=== PATIENT | female | born 1995 | race Caucasian/White ===

== ENCOUNTER 2021-07-02 13:20 | Outpatient (CLI) | payer OTHER ==
[~2021-07-02] VITALS: Ht 175 cm; Wt 83.5 kg
[2021-07-02 13:47] VITALS: BP 112/66
[2021-07-02 13:54] VITALS: BP 112/66
[2021-07-02 14:30] LABS: BILIRUBIN,URINE NEGATIVE (NEGATIVE); CLARITY,URINE SL CLOUDY; COLOR,URINE YELLOW; GLUCOSE, URINE (UA) NEGATIVE (NEGATIVE); KETONES,URINE TRACE (NEGATIVE); LEUKOCYTE ESTERASE ,URINE TRACE (NEGATIVE); NITRITE,URINE NEGATIVE (NEGATIVE); PROTEIN,URINE NEGATIVE (NEGATIVE)
[2021-07-02 14:49] LABS: BACTERIA,URINE MODERATE /HPF; RBC,URINE RARE /HPF
[2021-07-02] MEDS ORDERED: DOXY25TA56 PO (14:49)
[2021-07-02] MEDS ORDERED: ASCO100T6 PO (14:49)
[2021-07-02] MEDS ORDERED: ACYC400T21 PO (14:49)
[2021-07-02] MEDS ORDERED: FERR159T2 PO (14:49)
[2021-07-02] MEDS ORDERED: CETI10CA PO (14:49)
[2021-07-02] MEDS ORDERED: FOLI0.4T6 PO (14:49)
[2021-07-02] MEDS ORDERED: PREN-48 PO (14:49)
[2021-07-02] MEDS ORDERED: VIT1CAPS PO (14:49)
[2021-07-02 16:39] VITALS: BP 102/64
== END 2021-07-02 18:18 | disposition home or self-care (01) ==
LOC: WSo 13:20 → LDRP 13:21 → WSo 18:18
PROVIDERS: ATTEND Obstetrics & Gynecology
DX: Z34.90 Encounter for supervision of normal pregnancy, unspecified, unspecified trimester (principal); Z3A.00 Weeks of gestation of pregnancy not specified
CPT/HCPCS: 81000; 87088

== ENCOUNTER 2021-07-06 19:00 | Inpatient (IN) | payer OTHER ==
[~2021-07-06] VITALS: Ht 170.2 cm; Wt 85.8 kg
[~2021-07-06 19:00] MED LIST: ACYC400T21 PO; ASCO100T6 PO; CETI10CA PO; DOXY25TA56 PO; FERR159T2 PO; FOLI0.4T6 PO; PREN-48 PO; VIT1CAPS PO
--- OUTSIDE RECORDS SUMMARY | 2021-07-06 19:20 | XMS REPORT | Clinical Summary ---
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 If you d o not see the information that you expected, contact Release of Information in [facility] [employer] Information Management department at [phone] for further assistan ce in locating additional records.[facility] Allergies Not on File Medications Not on file Active Problems Not on file Social History Date Tobacco Use Types Packs/Day Years Used Never Assessed Sex Assigned at Date Recorded Not on file Last Filed Vital Signs Not on file Plan of Treatment Health Maintenance Due Date Last Done Comments COVID-19 VACCINE (1) 1999 HIV SCREENING 2009 DTAP/TDAP VACCINES (1 - 2012 Tdap) HEPATITIS C SCREENING 2012 PHYSICAL (COMPREHENSIVE) 2012 EXAM CERVICAL CANCER SCREENING 2015 INFLUENZA VACCINE 12/13/2020 HPV VACCINES Aged Out No longer eligible based on patient's age to complete this topic Results Not on filefrom Last 3 Months Insurance Type Payer Benefit Subscriber ID Effective Phone Address Plan / Dates Group PPO [employer] TR[employer] [id number] 2018-P [phone] [employer] NO NETWORK resent [employer] (OON) BUSINESS BENEFITS 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
[2021-07-06 19:30] VITALS: BP 107/65
[2021-07-06] MEDS ORDERED: D5 LR IV SOLUTION 1,000 ML IV ONE (19:36)
[2021-07-06] MEDS ORDERED: NS IV 1000 ML 1,000 ML ONE (19:37)
[2021-07-06] MEDS ORDERED: CATHETER FLUSH 10 ML SYR IV PRN (19:45)
[2021-07-06] MEDS ORDERED: NS IV 1000 ML 1,000 ML IV SCH (19:45)
[2021-07-06] MEDS ORDERED: TERBUTALINE INJ 1 MG/ML (BRETHINE) AMP SC PRN (19:45)
[2021-07-06] MEDS ORDERED: MINERAL OIL 30 ML OIL TOP PRN (19:45)
[2021-07-06 20:11] LABS: BASOPHILS % (AUTO) 0 % (0-10); EOSINOPHILS # (AUTO) 0.1 10^3/uL (0.0-0.3); EOSINOPHILS % (AUTO) 1 % (0-10); HEMATOCRIT 38 % (35-52); LYMPHOCYTES # (AUTO) 1.9 10^3/uL (1.0-4.0); LYMPHOCYTES % (AUTO) 18 % (12-44); MEAN CORPUSCULAR HEMOGLOBIN 30 pg (25-34); MEAN CORPUSCULAR HGB CONC 34 g/dL (32-36); MEAN CORPUSCULAR VOLUME 87 fL (80-99); MEAN PLATELET VOLUME 9.8 fL (9.0-12.2); MONOCYTES # (AUTO) 0.8 10^3/uL (0.0-1.0); MONOCYTES % (AUTO) 7 % (0-12); NEUTROPHILS # (AUTO) 7.8 10^3/uL (1.8-7.8); NEUTROPHILS % (AUTO) 73 % (42-75); PLATELET COUNT 154 10^3/uL (130-400); WHITE BLOOD COUNT 10.7 10^3/uL (4.3-11.0)
[2021-07-06 20:12] LABS: BILIRUBIN,URINE NEGATIVE (NEGATIVE); CLARITY,URINE CLEAR; COLOR,URINE YELLOW; GLUCOSE, URINE (UA) NEGATIVE (NEGATIVE); KETONES,URINE NEGATIVE (NEGATIVE); LEUKOCYTE ESTERASE ,URINE NEGATIVE (NEGATIVE); NITRITE,URINE NEGATIVE (NEGATIVE); PH,URINE 6.5 (5-9); PROTEIN,URINE NEGATIVE (NEGATIVE)
[2021-07-06 20:20] VITALS: BP 107/65
--- NOTE | 2021-07-06 20:27 | History & Physical-OB ---
OB - Chief Complaint & HPI Date/Time Date of Admission: Date of Admission: Jul 06, 2021 at 19:17 Date seen by a Provider: Jul 06, 2021 Time Seen by a Provider: 20:30 Chief Complaint/History OB-Reason for Admission/Chief: Induction of Labor Hx : 2 Hx Para: 0010 Expected Date of Delivery: Jul 06, 2021 Gestational Age in Weeks: 40 Gestational Age in Days: 0 Indication for induction: post dates History of Labs A pos GBS neg RPR NR HIV NR RI HBsAg NR G/C not detected Allergies and Home Medications Allergies Coded Allergies: No Known Drug Allergies (Unverified , 07/02/21) Patient Home Medication List Home Medication List Reviewed: Yes Acyclovir (Acyclovir) 400 Mg Tablet, 400 MG PO Q8H, (Reported) Entered as Reported by: ROSLYN DINH on 07/02/211448 Last Action: Reviewed Ascorbic Acid (Vitamin C) 100 Mg Tablet, 100 MG PO DAILY, (Reported) Entered as Reported by: ROSLYN DINH on 07/02/211448 Last Action: Reviewed Cetirizine HCl (Zyrtec) 10 Mg Capsule, 10 MG PO DAILY, (Reported) Entered as Reported by: ROSLYN DINH on 07/02/211448 Last Action: Reviewed Doxylamine Succinate (Unisom) 25 Mg Tablet, 25 MG PO, (Reported) Entered as Reported by: ROSLYN DINH on 07/02/211448 Last Action: Reviewed Ferrous Sulfate, Dried (Iron) 159 Mg Tablet.er, 159 MG PO, (Reported) Entered as Reported by: ROSLYN DINH on 07/02/211448 Last Action: Reviewed Folic Acid (Folic Acid) 0.4 Mg Tablet, 0.4 MG PO DAILY, (Reported) Entered as Reported by: ROSLYN DINH on 07/02/211448 Last Action: Reviewed Vit No.78/Iron/FA (Prenatabs FA Tablet) 1 Each Tablet, 1 EACH PO, (Reported) Entered as Reported by: ROSLYN DINH on 07/02/211448 Last Action: Reviewed Vit B6/L. Mefolate/Me-B12/Ala (Nufola Capsule) 1 Each Capsule, 1 EACH PO, (Reported) Entered as Reported by: ROSLYN DINH on 07/02/21 1449 Last Action: Reviewed OB - History Hx of Present Care: Yes Ultrasounds: Normal mid trimester US Obstetrical Complications: None Medical Complications: None Information Induced Hypertension: No Maternal Gestational Diabetes: No Hemorrhage: No Obstetrical History Hx : 2 Hx Para: 0010 Hx # Term Pregnancies: 0 Hx # Pregnancies: 0 Number of Living Children: 0 Hx Total # of Abortions (Spona: 1 Patient Past Medical History None Social History/Family History 2nd Hand Smoke Exposure: No Immunizations Influenza Vaccine Up-to-Date: Yes; Up-to-Date Tetanus Booster (TDap): Less than 5yrs (05/13/2021) Rubella: immune RPR/VDRL: Negative GBS Status: Negative HBsAG: Negative OB - Admission Exam Physical Exam Vitals: Vital Signs 07/06/21 07/06/21 19:30 20:20 Temp 36.6 Pulse 80 Resp 18 B/P (MAP) 107/65 (79) Pulse Ox 97 O2 Delivery Room Air Heart: Rhythm Normal Lungs: Clear Abdomen: Gravid Extremities: Normal Cervical Dilatation: 1cm Effacement: Other (70%) Station: -2 Membranes: Intact Heart Rate: 150's Accelerations: Accelerations Present Decelerations: No Decelerations Short Term Variability: Present Vehicle Dismantler Variability: Average (6-25) Contractions on Admission: < 5 Minutes Apart (every 3 to 4 minutes) Frequency of Contractions: 3-4 minutes Intensity: Mild Snyder Scoring Tool (Modified) Dilation (cm): 1-2cm (1) Effacement (%): 51-79% (2) Descent/Station: -2 (1) Subtract 1 point for: Nulliparity (-1) Labs Laboratory Tests Test 07/06/21 19:45 Range/Units OB - Assessment/Plan/Diagnosis Assessment Assessment: induction of labor Admission Dx 26 y/o at 40 wks and 0 days IOL due to post dates GBS neg Admission Status: Inpatient Order (span 2 midnights) Reason for Inpatient Admission: 26 y/o at 40 wks and 0 days IOL due to post dates GBS neg Plan Plan: Induction Induction Method: per Misoprostol Protocol MICHI SANTILLAN Jul 06, 2021 20:27
[2021-07-06 20:45] VITALS: BP 95/59
[2021-07-06] MEDS: D5 LR IV SOLUTION 1,000 ML IV SCH (20:45)
[2021-07-06 21:19] LABS: BACTERIA,URINE TRACE /HPF; RBC,URINE 0-2 /HPF; SQUAMOUS EPITHELIAL CELL,UR 0-2 /HPF; WBC,URINE 0-2 /HPF
[2021-07-06 21:20] LABS: AMORPHOUS SEDIMENT,UR RARE AMOR URATES /LPF
[2021-07-06 22:00] VITALS: BP 107/71
[2021-07-06 23:00] VITALS: BP 104/55
[2021-07-07] VITALS (74 sets, daily range): BP systolic 80–131; BP diastolic 47–85
[2021-07-07] MEDS ORDERED: HYDROmorphone 2 MG/ML VIAL (DILAUDID) IV ONE (02:00)
[2021-07-07] MEDS: D5 LR IV SOLUTION 1,000 ML IV SCH ×2 (04:02→11:32)
[2021-07-07] MEDS ORDERED: fentaNYL 2 mcg/ml BUPIVA 0.125 100 ML ONE (06:27)
[2021-07-07] MEDS ORDERED: fentaNYL INJ 100 MCG/2 ML AMP ONE (07:18)
[2021-07-07] MEDS ORDERED: NALOXONE 0.4 MG/ML 1 ML (NARCAN) VIAL IV PRN ×2 (07:30→15:30)
[2021-07-07] MEDS ORDERED: CATHETER FLUSH 10 ML SYR IV PRN (07:30)
[2021-07-07] MEDS ORDERED: fentaNYL 2 mcg/ml BUPIVA 0.125 100 ML IV SCH (07:30)
[2021-07-07] MEDS ORDERED: ONDANSETRON 4 MG/2 ML (SDV) Z0FRAN IV PRN (07:30)
[2021-07-07] MEDS ORDERED: LACTATED RINGERS 1,000 ML IV ONE (07:30)
[2021-07-07] MEDS ORDERED: fentaNYL INJ 100 MCG/2 ML AMP INJ ONE (07:30)
[2021-07-07] MEDS: OXYTOCIN PRE-MIX DRIP 500 ML IV SCH ×2 (11:31→15:44)
[2021-07-07] MEDS ORDERED: MINERAL OIL CONCENTRATE 99.9% 15 ML UDC TOP PRN (12:30)
[2021-07-07] MEDS ORDERED: LIDOCAINE 1% INJ 20 ML VIAL ONE (14:01)
[2021-07-07] MEDS ORDERED: TETANUS,DIPTH,PERTUSS P/F (BOOSTRIX) 0.5 ML VIAL IM ONE (15:30)
[2021-07-07] MEDS ORDERED: HYDROcodone/APAP 5 MG/325 MG (LORTAB) TAB PO PRN (15:30)
[2021-07-07] MEDS ORDERED: MEASLES,MUMPS,RUBELLA 1 EA INJ SQ ONE (15:30)
[2021-07-07] MEDS ORDERED: BENZOCAINE/MENTHOL (DERMOPLAST) 56 ML CAN TP PRN (15:30)
[2021-07-07] MEDS ORDERED: DIBUCAINE 1% OINTMENT 30 GM TUBE TOP PRN (15:30)
[2021-07-07] MEDS ORDERED: WITCH HAZEL(TUCKS) 40 EA JAR TOP PRN (15:30)
[2021-07-07] MEDS: IBUPROFEN 600 MG (MOTRIN) TAB PO SCH ×2 (15:45→22:04)
--- NOTE | 2021-07-07 16:43 | Discharge Inst-Women's Service ---
Discharge Inst-Women's Serv Depart Medication/Instructions New, Converted or Re-Newed RX: Transmitted to Pharmacy Final Diagnosis PPD 1 VAVD Problems Reviewed?: Yes Consults/Follow Up Additional Follow Up: Yes Orders/Referrals Dr. Sommer in 6 weeks Activity Activity: Activity as Tolerated Driving Instructions: No Driving for 1 Week NO SMOKING: NO SMOKING Nothing Inside Vagina: No Douching, No [place], No Tampons Diet Discharge Diet: No Restrictions Symptoms to Report to : Bleeding Excessive, Pain Increased, Fever Over 101 Degrees F, Vaginal Bleeding Increase, Questions/Concerns For Any Problems or Questions: Contact Your Physician Skin/Wound Care Infection Signs and Symptoms: Increased Redness, Foul Odor of Wound, Increased Drainage, Skin Itchy or Has a Rash, Increased Swelling, Temperature Above 101 F Operative Area Clean and Dry: Keep Incision Clean/Dry Stitches/Yanna/Dermabond: Dermabond, Care of Stitches Bathing Instructions: ANASTASIYA Gould DO Jul 07, 2021 4:43 pm
[2021-07-07] MEDS ORDERED: BENZ78AE5 TP (16:46)
[2021-07-07] MEDS ORDERED: DIBU30OI TOP (16:46)
[2021-07-07] MEDS ORDERED: ACHD5005 PO (16:46)
[2021-07-07] MEDS ORDERED: IBUP-844 PO (16:46)
[2021-07-07] MEDS ORDERED: DOCU100C37 PO (16:46)
--- NOTE | 2021-07-07 16:53 | OB Labor & Delivery Record ---
L&D History Date of Service Date of Service: Jul 07, 2021 History Expected Date of Delivery: Jul 06, 2021 Gestational Age in Weeks: 40 Hx : 2 Hx Para: 0010 Complications Events: Routine care Operative Indications (Cesarea: N/A-Vaginal Delivery Intrapartal Events: None L&D Stage1 Stage One Onset of Labor - Date: Jul 07, 2021 Monitors and Tracing Monitor Mode: External Heart Rate: 135 Station: 0 Vital Signs VS - Last 72 Hours, by Label 07/06/21 07/06/21 07/06/21 07/06/21 19:30 20:20 20:45 22:00 Temp 36.6 36.6 Pulse 80 80 73 75 Resp 18 18 B/P (MAP) 107/65 (79) 95/59 (71) 107/71 (83) Pulse Ox 97 97 O2 Delivery Room Air Room Air 07/06/21 07/07/21 07/07/21 07/07/21 23:00 00:00 02:00 02:45 Pulse 66 73 64 64 B/P (MAP) 104/55 (71) 103/66 (78) 107/65 (79) 106/64 (78) 07/07/21 07/07/21 07/07/21 07/07/21 04:00 05:00 06:47 07:00 Temp 36.1 Pulse 68 71 96 97 Resp 18 18 B/P (MAP) 109/70 (83) 106/67 (80) 116/77 (90) 118/76 (90) Pulse Ox 96 O2 Delivery Room Air Room Air 07/07/21 07/07/21 07/07/21 07/07/21 07:05 07:12 07:14 07:18 Pulse 99 90 104 104 Resp 18 18 18 B/P (MAP) 116/74 (88) 110/70 (83) 118/76 (90) 104/70 (81) Pulse Ox 98 98 O2 Delivery Room Air Room Air Room Air Room Air 07/07/21 07/07/21 07/07/21 07/07/21 07:21 07:24 07:27 07:30 Pulse 110 88 98 102 Resp 18 18 18 B/P (MAP) 102/71 (81) 106/60 (75) 104/56 (72) 100/58 (72) Pulse Ox 98 97 O2 Delivery Room Air Room Air Room Air Room Air 07/07/21 07/07/21 07/07/21 07/07/21 07:33 07:39 07:44 07:49 Pulse 100 95 85 80 Resp 18 18 18 18 B/P (MAP) 104/63 (77) 102/62 (75) 107/62 (77) 105/63 (77) Pulse Ox 97 98 97 O2 Delivery Room Air Room Air Room Air Room Air 07/07/21 07/07/21 07/07/21 07/07/21 07:54 08:00 08:04 08:22 Temp 36.2 Pulse 79 78 92 68 Resp 18 18 18 18 B/P (MAP) 113/70 (84) 106/71 (83) 106/69 (81) 106/64 (78) Pulse Ox 97 97 99 O2 Delivery Room Air Room Air Room Air 07/07/21 07/07/21 07/07/21 07/07/21 08:40 08:52 09:09 09:22 Temp 36.4 Pulse 72 77 82 89 Resp 18 18 18 18 B/P (MAP) 80/47 (58) 85/54 (64) 87/53 (64) 106/58 (74) O2 Delivery Room Air Room Air Room Air Room Air 07/07/21 07/07/21 07/07/21 07/07/21 09:37 09:52 10:07 10:23 Pulse 91 76 80 86 Resp 18 18 18 18 B/P (MAP) 105/67 (80) 101/65 (77) 94/61 (72) 98/62 (74) O2 Delivery Room Air Room Air Room Air Room Air 07/07/21 07/07/21 07/07/21 07/07/21 10:39 10:52 11:09 11:38 Pulse 70 82 70 80 Resp 18 18 18 18 B/P (MAP) 95/57 (70) 96/58 (71) 96/59 (71) 81/49 (60) O2 Delivery Room Air Room Air Room Air Room Air 07/07/21 07/07/21 07/07/21 07/07/21 11:53 12:08 12:23 12:39 Pulse 76 79 92 76 Resp 18 18 18 18 B/P (MAP) 80/50 (60) 108/69 (82) 110/73 (85) 109/68 (82) O2 Delivery Room Air Room Air Room Air Room Air 07/07/21 07/07/21 07/07/21 07/07/21 12:52 13:08 13:23 13:36 Pulse 78 90 78 110 Resp 18 18 18 18 B/P (MAP) 110/66 (81) 105/67 (80) 115/69 (84) 115/72 (86) O2 Delivery Room Air Room Air Room Air Room Air 07/07/21 07/07/21 07/07/21 07/07/21 13:52 13:55 13:58 14:01 Pulse 93 100 121 100 Resp 18 18 18 18 B/P (MAP) 115/72 (86) 111/70 (84) 108/76 (87) 118/79 (92) Pulse Ox 100 O2 Delivery Room Air Room Air Room Air Room Air 07/07/21 07/07/21 07/07/21 07/07/21 14:04 14:07 14:10 14:13 Pulse 110 107 97 109 Resp 18 18 18 18 B/P (MAP) 116/84 (95) 120/85 (97) 131/61 (84) 121/58 (79) O2 Delivery Room Air Room Air Room Air Room Air 07/07/21 07/07/21 07/07/21 07/07/21 14:16 14:20 14:32 14:33 Pulse 131 139 86 83 Resp 18 18 18 18 B/P (MAP) 126/70 (88) 109/65 (80) 110/60 (77) 112/58 (76) O2 Delivery Room Air Room Air Room Air Room Air 07/07/21 07/07/21 07/07/21 07/07/21 14:40 14:43 14:56 15:45 Temp 36.8 Pulse 80 85 115 Resp 18 18 18 B/P (MAP) 112/62 (79) 109/57 (74) 119/62 (81) O2 Delivery Room Air Room Air Room Air Rupture of Membranes Spontaneous Ruture of Membrane: No Amniotic Membrane Rupture Time: 0804 Amniotic Membrane Fluid Desc.: Clear Vaginal Bleeding Description: Normal Show Induction/Anesthesia Epidural Cath Placement - Time: 0707 L&D Stage2 Stage Two Stage II Date: Jul 07, 2021 Monitors and Tracing Monitor Mode: External Heart Rate: 135 Monitor Accelerations: Uniform Monitor Decelerations: Variable Snf Variability: Average (6-10) Short Term Variability: Present Position: Right Occiput Anterior Presentation: Vertex Signs of Distress by FHT Signs of Distress Patient progressed infant to +3, there were deep variables after pushes. Patient pushing became ineffective, so i urgently discussed Low Vacuum extraction with [place]. Cup is placed on the flexion point, and with next maternal push infant head is delivered with gentle extension at 300mmHg pressure over a RML episiotomy. Once head is delivered suction is released. Shoulders delivered without difficulty. Cord Descript/Complications Cord Vessel Description: 3 Vessels Delivery Type Infant Delivery Method: Low Vacuum Extraction Anterior Shoulder: Left Episiotomy/Perineal Laceration Laceraction(s)/Extensions: Yes Episiotomy Description: Right Mediolateral Condition of Delivery 1 minute Comment: 8 5 minute Comment: 9 Notes Live female weight 7lbs 11oz Condition of Condition of : Living Exam: No Observed Abnormalities Resuscitation Resuscitation: N/A - Spontaneous Resp L&D Stage3 Stage Three Stage III Date: Jul 07, 2021 Pictocin Pitocin Administration mu/min: 2 Pitocin ml/hr: 2 Pitocin Administration Comment: 30 mu wide open after delivery of placenta Placenta Delivery Placenta Delivery: Spontaneous Delivery Summary Summary Estimated blood loss (mL): 400 Attending at delivery: Anastasiya Moses DO Condition of Delivery Examined: Cervix Examined, Uterus Explored Post Hemorrhage: No Condition of Mother stable Condition of (s) stable ANASTASIYA MOSES DO Jul 07, 2021 4:53 pm
[2021-07-07] MEDS ORDERED: CATHETER FLUSH 10 ML SYR IV SCH (22:00)
[2021-07-07] MEDS: DOCUSATE SODIUM 100 MG (COLACE) CAP PO SCH (22:04)
[2021-07-08 00:34] VITALS: BP 96/52
[2021-07-08] MEDS: IBUPROFEN 600 MG (MOTRIN) TAB PO SCH ×3 (05:19→17:03)
[2021-07-08 05:21] VITALS: BP 90/59
[2021-07-08 06:08] LABS: BASOPHILS % (AUTO) 0 % (0-10); LYMPHOCYTES % (AUTO) 21 % (12-44)
[2021-07-08 06:10] LABS: EOSINOPHILS # (AUTO) 0.1 10^3/uL (0.0-0.3); EOSINOPHILS % (AUTO) 1 % (0-10); HEMATOCRIT 30 % (35-52); HEMOGLOBIN 9.9 g/dL (11.5-16.0); LYMPHOCYTES # (AUTO) 2.8 10^3/uL (1.0-4.0); MEAN CORPUSCULAR HEMOGLOBIN 30 pg (25-34); MEAN CORPUSCULAR HGB CONC 33 g/dL (32-36); MEAN CORPUSCULAR VOLUME 89 fL (80-99); MEAN PLATELET VOLUME 9.9 fL (9.0-12.2); MONOCYTES # (AUTO) 1.1 10^3/uL (0.0-1.0); MONOCYTES % (AUTO) 8 % (0-12); NEUTROPHILS # (AUTO) 9.3 10^3/uL (1.8-7.8); NEUTROPHILS % (AUTO) 70 % (42-75); PLATELET COUNT 109 10^3/uL (130-400); WHITE BLOOD COUNT 13.3 10^3/uL (4.3-11.0)
[2021-07-08] MEDS ORDERED: PRENATAL VITAMIN 1 EA TAB PO SCH (07:00)
--- NOTE | 2021-07-08 08:01 | Postpartum Progress Note ---
MICHI SANTILLAN 07/08/21 0801: Note Note Day #1 Subjective: Patient is without complaints. Ambulating, voiding. Has not yet had a bowel movement. Tolerating a regular diet without nausea or vomiting. Normal lochia. Pain is well controlled with oral pain medications. Breast feeding is going well. Patient states baby has latched without difficulty. Objective: Afebrile. Denies aches, chills, chest pain, or shortness of breath. Reports soreness of abdomen and mild swelling. Physical Exam: General - Alert and oriented, no apparent distress Abdomen - Soft, appropriately tender to palpation, non-distended, fundus firm at umbilicus Extremities - mild edema Assessment: post- day # 1, status post vaginal delivery after induction of labor due to post dates. Recovering well, hemodynamically stable Plan: Routine care. Encourage breast feeding. Encourage ambulation. Ferrous sulfate supplementation. Plan for discharge today. Vitals - Labs Vital Signs - I&O Vital Signs Date Time Temp Pulse Resp B/P (MAP) Pulse Ox O2 Delivery O2 Flow Rate FiO2 07/08/21 05:21 36.4 69 16 90/59 (69) 07/08/21 00:34 36.8 72 18 96/52 (67) 98 Room Air 07/07/21 19:48 37.0 95 97/56 (70) 07/07/21 17:58 72 18 94/57 (69) Room Air 07/07/21 17:43 75 18 97/56 (70) Room Air 07/07/21 17:28 89 18 95/57 (70) Room Air 07/07/21 17:13 87 18 99/61 (74) Room Air 07/07/21 16:58 89 18 103/59 (74) Room Air 07/07/21 16:43 81 18 111/72 (85) Room Air 07/07/21 16:27 82 18 95/58 (70) Room Air 07/07/21 16:15 82 18 89/56 (67) Room Air 07/07/21 16:00 90 18 97/59 (72) Room Air 07/07/21 15:45 36.8 07/07/21 15:42 36.8 82 18 98/63 (75) Room Air 07/07/21 15:27 95 18 103/66 (78) Room Air 07/07/21 15:09 109 18 96/52 (67) Room Air 07/07/21 15:03 88 18 100/59 (73) Room Air 07/07/21 15:00 89 18 98/56 (70) Room Air 07/07/21 14:57 90 18 102/56 (71) Room Air 07/07/21 14:56 115 18 119/62 (81) Room Air 07/07/21 14:43 85 18 109/57 (74) Room Air 07/07/21 14:40 80 18 112/62 (79) Room Air 07/07/21 14:33 83 18 112/58 (76) Room Air 07/07/21 14:32 86 18 110/60 (77) Room Air 07/07/21 14:20 139 18 109/65 (80) Room Air 07/07/21 14:16 131 18 126/70 (88) Room Air 07/07/21 14:13 109 18 121/58 (79) Room Air 07/07/21 14:10 97 18 131/61 (84) Room Air 07/07/21 14:07 107 18 120/85 (97) Room Air 07/07/21 14:04 110 18 116/84 (95) Room Air 07/07/21 14:01 100 18 118/79 (92) Room Air 07/07/21 13:58 121 18 108/76 (87) 100 Room Air 07/07/21 13:55 100 18 111/70 (84) Room Air 07/07/21 13:52 93 18 115/72 (86) Room Air 07/07/21 13:36 110 18 115/72 (86) Room Air 07/07/21 13:23 78 18 115/69 (84) Room Air 07/07/21 13:08 90 18 105/67 (80) Room Air 07/07/21 12:52 78 18 110/66 (81) Room Air 07/07/21 12:39 76 18 109/68 (82) Room Air 07/07/21 12:23 92 18 110/73 (85) Room Air 07/07/21 12:08 79 18 108/69 (82) Room Air 07/07/21 11:53 76 18 80/50 (60) Room Air 07/07/21 11:38 80 18 81/49 (60) Room Air 07/07/21 11:09 70 18 96/59 (71) Room Air 07/07/21 10:52 82 18 96/58 (71) Room Air 07/07/21 10:39 70 18 95/57 (70) Room Air 07/07/21 10:23 86 18 98/62 (74) Room Air 07/07/21 10:07 80 18 94/61 (72) Room Air 07/07/21 09:52 76 18 101/65 (77) Room Air 07/07/21 09:37 91 18 105/67 (80) Room Air 07/07/21 09:22 89 18 106/58 (74) Room Air 07/07/21 09:09 82 18 87/53 (64) Room Air 07/07/21 08:52 36.4 77 18 85/54 (64) Room Air 07/07/21 08:40 72 18 80/47 (58) Room Air 07/07/21 08:22 68 18 106/64 (78) 07/07/21 08:04 36.2 92 18 106/69 (81) 99 Room Air 07/07/21 08:00 78 18 106/71 (83) 97 Room Air I & O 07/08/21 07:00 Intake Total 2000 ml Balance 2000 ml Labs Laboratory Tests 07/08/21 06:00: White Blood Count 13.3H, Red Blood Count 3.34L, Hemoglobin 9.9#L, Hematocrit 30L , Mean Corpuscular Volume 89, Mean Corpuscular Hemoglobin 30, Mean Corpuscular Hemoglobin Concent 33, Red Cell Distribution Width 12.7, Platelet Count 109L, Mean Platelet Volume 9.9, Immature Granulocyte % (Auto) 1, Neutrophils (%) (Auto) 70, Lymphocytes (%) (Auto) 21, Monocytes (%) (Auto) 8, Eosinophils (%) (Auto) 1, Basophils (%) (Auto) 0, Neutrophils # (Auto) 9.3H, Lymphocytes # (Auto) 2.8, Monocytes # (Auto) 1.1H, Eosinophils # (Auto) 0.1, Basophils # (Auto) 0.0, Immature Granulocyte # (Auto) 0.1, Percent Immature Platelet Fraction 2.9 ANASTASIYA MOSES DO 2/27/22 1822: Note Note Verification and Attestation of Medical Student E/M Service A medical student performed and documented this service in my presence. I reviewed and verified all information documented by the medical student and made modifications to such information, when appropriate. I personally performed the physical exam and medical decision making. Anastasiya Moses, Jul 11, 2021,18:22 MICHI SANTILLAN Jul 08, 2021 08:01 ANASTASIYA MOSES DO Jul 11, 2021 18:22
[2021-07-08] MEDS ORDERED: FERROUS SULF 325 MG (IRON) TAB PO SCH (09:00)
[2021-07-08 09:50] VITALS: BP 97/52
[2021-07-08] MEDS: DOCUSATE SODIUM 100 MG (COLACE) CAP PO SCH (09:55)
--- NOTE | 2021-07-08 15:05 | Anesthesia-Regional Post-Op ---
Regional Patient Condition Mental Status: Alert, Oriented x3 Circulation: Same as Pre-Op Headache: Absent Sensation: Full Recovery Motor Block: Absent Post Op Complications Complications None Follow Up Care/Instructions Patient Instructions None needed. Anesthesia/Patient Condition Patient is doing well, no complaints, stable vital signs, no apparent adverse anesthesia problems. SIM TAYLOR DO Jul 08, 2021 15:05
--- NOTE | 2021-07-09 14:37 | Physician Query Clarification ---
PQ-Intro New Diagnosis Admission/Discharge Admission Date: Jul 06, 2021 at 19:17 Discharge Date: Jul 08, 2021 at 17:05 Dr. Moses, The medical record reflects the following clinical scenario: History/Risk Factors: postdates Clinical Findings: Hgb 07/06 13.0, Hgb 07/08 9.9, EBL 400 ml Treatment: 325 mg ferrous sulfate Question: What condition best reflects the above clinical scenario? Please document a response in the Progress Noter or Discharge Summary. 1. acute blood loss anemia 2. dilutional anema 3. Other, with explanation of the clinical findings. 4. Clinically undetermined, no explanation for the clinical findings. PHYSICIAN RESPONSE What condition reflects above: Other, explanation/clinical finding Explanation of clincal finding Acute blood loss anemia Please remember a lack of response to the above will prompt a phone page by CDI/Coding staff. In responding to this query, please exercise your independent professional judgment. The purpose of this communication is to more accurately reflect the complexity of your patients condition. The fact that a question is asked does not imply that any particular answer is desired or expected. Thank you for your timely response to this clarification. Requestors name: Isaac THIS PHYSICIAN QUERY FORM IS A PERMANENT PART OF THE MEDICAL RECORD ISAAC PINTO Jul 09, 2021 14:37 ANASTASIYA MOSES DO Jul 11, 2021 18:23
== END 2021-07-08 17:05 | disposition home or self-care (01) | DRG 806 ==
LOC: LDRP 19:17
PROVIDERS: ADMIT Obstetrics & Gynecology; ATTEND Obstetrics & Gynecology
PROC: 10D07Z6 Extraction of Products of Conception, Vacuum, Via Natural or Artificial Opening (ICD-10-PCS; principal; 2021-07-07)
PROC: 0W8NXZZ Division of Female Perineum, External Approach (ICD-10-PCS; 2021-07-07)
PROC: 3E0DXGC Introduction of Other Therapeutic Substance into Mouth and Pharynx, External Approach (ICD-10-PCS; 2021-07-07)
DX: O48.0 Post-term pregnancy (principal); D62 Acute posthemorrhagic anemia; Z37.0 Single live birth; O76 Abnormality in fetal heart rate and rhythm complicating labor and delivery; O75.81 Maternal exhaustion complicating labor and delivery; O90.81 Anemia of the puerperium; Z3A.40 40 weeks gestation of pregnancy
CPT/HCPCS: 36415; 81000; 85025; 86850; 86900; 86901

== ENCOUNTER → 2022-09-13 | Outpatient (CLI) | payer OTHER ==
[~2022-09-13] MED LIST changes: +ACHD5005 PO; +BENZ78AE5 TP; +DIBU30OI TOP; +DOCU100C37 PO; +IBUP-844 PO
--- NOTE | 2022-09-13 18:43 | Diagnostic Imaging Report ---
INDICATION: Routine care. TECHNIQUE: Multiple real-time grayscale images were obtained over the gravid uterus. COMPARISON: None FINDINGS: There is a single live fetus in a cephalic presentation. heart rate was recorded at 158 bpm. Placenta is posterior. No previa is detected. Amniotic fluid index is 9.3 cm. Cervical length is 3.3 cm. kidneys, bladder and stomach are unremarkable. brain is unremarkable. There is a four-chamber heart. There is a three-vessel cord with normal insertion. spine is unremarkable. Biometrical measurements are as follows: Biparietal 4.99 cm, age 21 weeks 1 days. Head circumference 19.48 cm, age 21 weeks 5 days. Abdominal circumference 16.02 cm, age 21 weeks 1 days. Femur length 3.38 cm, age 20 weeks 5 days. Sonographic estimate age: 21 weeks 2 days. Sonographic estimated date of delivery: 01/22/2023. Estimated Weight: 390 gm (+/- 57 gm). LMP percentile: 29%. heart rate: 158 beats per minute. number: 1 of 1. IMPRESSION: Single live IUP at 21 weeks 2 days gestational age. Estimated date of confinement sonographically is 01/22/2023. Dictated by: Dictated on workstation # [id number]
== END ==
LOC: RAD 10:02
PROVIDERS: ATTEND Nurse Practitioner Women's Health
DX: Z34.02 Encounter for supervision of normal first pregnancy, second trimester (principal); Z3A.21 21 weeks gestation of pregnancy
CPT/HCPCS: 76805

== ENCOUNTER 2022-11-16 12:19 | Outpatient (CLI) | payer OTHER ==
[2022-11-16 12:43] VITALS: BP 101/62
[2022-11-16 13:18] LABS: BILIRUBIN,URINE NEGATIVE (NEGATIVE); CLARITY,URINE CLEAR; COLOR,URINE YELLOW; GLUCOSE, URINE (UA) NEGATIVE (NEGATIVE); KETONES,URINE NEGATIVE (NEGATIVE); LEUKOCYTE ESTERASE ,URINE NEGATIVE (NEGATIVE); NITRITE,URINE NEGATIVE (NEGATIVE); PROTEIN,URINE NEGATIVE (NEGATIVE)
[2022-11-16 13:33] LABS: BACTERIA,URINE TRACE /HPF; SQUAMOUS EPITHELIAL CELL,UR RARE /HPF
--- NOTE | 2022-11-17 08:12 | Physician Query-Final Dx ---
SHAHZAD,11/17/22 0812: Clinic Account Progress/Dx Physician Query: Please give diagnosis Please include # weeks gestation Date of Service Nov 16, 2022 at 12:19 ANASTASIYA MOSES DO 11/17/22 1012: Clinic Account Progress/Dx DIAGNOSIS: Diagnosis 30 week IUP Low back pains SHAHZAD,MayNov 17, 2022 08:12 ANASTASIYA MOSES DO Nov 17, 2022 10:12
== END 2022-11-16 14:05 | disposition home or self-care (01) ==
LOC: WSo 12:19 → LDRP 12:19 → WSo 14:05
PROVIDERS: ATTEND Obstetrics & Gynecology
DX: O26.893 Other specified pregnancy related conditions, third trimester (principal); M54.50 Low back pain, unspecified; Z3A.30 30 weeks gestation of pregnancy
CPT/HCPCS: 81000; 99213

== ENCOUNTER 2023-01-25 06:30 | Inpatient (IN) | payer OTHER ==
[2023-01-25] VITALS (64 sets, daily range): BP systolic 83–129; BP diastolic 47–74
[~2023-01-25] VITALS: Ht 170.2 cm; Wt 82.8 kg
[2023-01-25] MEDS ORDERED: LIDOCAINE 2% w/EPI 1:200,000 20 ML VIAL INJ PRN (07:30)
[2023-01-25] MEDS ORDERED: MINERAL OIL 30 ML UDC TOP PRN (07:30)
[2023-01-25] MEDS ORDERED: LACTATED RINGERS 1,000 ML 500 ML IV PRN (07:30)
[2023-01-25] MEDS: D5 LR 1,000 ML IV SOLN 1,000 ML IV SCH ×2 (08:23→15:36)
[2023-01-25 08:36] LABS: BASOPHILS % (AUTO) 0 % (0-10); EOSINOPHILS # (AUTO) 0.1 10^3/uL (0.0-0.3); EOSINOPHILS % (AUTO) 1 % (0-10); HEMATOCRIT 35 % (35-52); HEMOGLOBIN 11.8 g/dL (11.5-16.0); LYMPHOCYTES # (AUTO) 1.9 10^3/uL (1.0-4.0); LYMPHOCYTES % (AUTO) 23 % (12-44); MEAN CORPUSCULAR HEMOGLOBIN 29 pg (25-34); MEAN CORPUSCULAR HGB CONC 34 g/dL (32-36); MEAN CORPUSCULAR VOLUME 87 fL (80-99); MEAN PLATELET VOLUME 9.2 fL (9.0-12.2); MONOCYTES # (AUTO) 0.8 10^3/uL (0.0-1.0); MONOCYTES % (AUTO) 10 % (0-12); NEUTROPHILS # (AUTO) 5.5 10^3/uL (1.8-7.8); NEUTROPHILS % (AUTO) 66 % (42-75); PLATELET COUNT 122 10^3/uL (130-400); WHITE BLOOD COUNT 8.4 10^3/uL (4.3-11.0)
--- NOTE | 2023-01-25 08:46 | History & Physical-OB ---
OB - Chief Complaint & HPI Date/Time Date of Admission: Date of Admission: Jan 25, 2023 at 06:39 Date seen by a Provider: Jan 25, 2023 Time Seen by a Provider: 08:00 Chief Complaint/History OB-Reason for Admission/Chief: Induction of Labor Hx : 3 Hx Para: 1 Expected Date of Delivery: Jan 22, 2023 Gestational Age in Weeks: 40 Gestational Age in Days: 3 Admission Nurse Assessment Rev: Yes Allergies and Home Medications Allergies Coded Allergies: No Known Drug Allergies (Unverified , 07/02/21) Patient Home Medication List Home Medication List Reviewed: Yes Ascorbic Acid (Vitamin C) 100 Mg Tablet, 100 MG PO DAILY, (Reported) Entered as Reported by: ROSLYN DINH on 07/02/21 144 Folic Acid (Folic Acid) 0.4 Mg Tablet, 0.4 MG PO DAILY, (Reported) Entered as Reported by: ROSLYN DINH on 07/02/21 144 Vit No.78/Iron/FA (Prenatabs FA Tablet) 1 Each Tablet, 1 EACH PO, (Reported) Entered as Reported by: ROSLYN DINH on 07/02/211448 Vit B6/L. Mefolate/Me-B12/Ala (Nufola Capsule) 1 Each Capsule, 1 EACH PO, (Reported) Entered as Reported by: ROSLYN DINH on 07/02/211448 OB - History Hx of Present Care: Yes Ultrasounds: Normal mid trimester US Obstetrical Complications: None Medical Complications: None Patient Past Medical History None Social History/Family History 2nd Hand Smoke Exposure: No Immunizations Hepatitis A: No Hepatitis B: No Tetanus Booster (TDap): Less than 5yrs OB - Admission Exam Physical Exam Vitals: Vital Signs 01/25/23 07:20 Temp 36.4 Pulse 93 Resp 18 Pulse Ox 98 O2 Delivery Room Air HEENT: NCAT Heart: Rhythm Normal Lungs: Clear Abdomen: Gravid Extremities: Normal Cervical Dilatation: 3cm Effacement: 75% Station: -1 Membranes: Intact Heart Rate: 130's Accelerations: Accelerations Present Decelerations: No Decelerations Short Term Variability: Present Detention Variability: Average (6-25) Contractions on Admission: 6-10 Minutes Apart Intensity: Mild Labs Laboratory Tests Test 01/25/23 08:28 Range/Units White Blood Count 8.4 4.3-11.0 10^3/uL Red Blood Count 4.01 3.80-5.11 10^6/uL Hemoglobin 11.8 11.5-16.0 g/dL Hematocrit 35 35-52 % Mean Corpuscular Volume 87 80-99 fL Mean Corpuscular Hemoglobin 29 25-34 pg Mean Corpuscular Hemoglobin Concent 34 32-36 g/dL Red Cell Distribution Width 13.1 10.0-14.5 % Platelet Count 122 L 130-400 10^3/uL Mean Platelet Volume 9.2 9.0-12.2 fL Immature Granulocyte % (Auto) 1 % Neutrophils (%) (Auto) 66 42-75 % Lymphocytes (%) (Auto) 23 12-44 % Monocytes (%) (Auto) 10 0-12 % Eosinophils (%) (Auto) 1 0-10 % Basophils (%) (Auto) 0 0-10 % Neutrophils # (Auto) 5.5 1.8-7.8 10^3/uL Lymphocytes # (Auto) 1.9 1.0-4.0 10^3/uL Monocytes # (Auto) 0.8 0.0-1.0 10^3/uL Eosinophils # (Auto) 0.1 0.0-0.3 10^3/uL Basophils # (Auto) 0.0 0.0-0.1 10^3/uL Immature Granulocyte # (Auto) 0.1 0.0-0.1 10^3/uL OB - Assessment/Plan/Diagnosis Assessment Assessment: induction of labor Admission Dx 27 yo @ 40 weeks IOL GBS neg Admission Status: Inpatient Order (span 2 midnights) Reason for Inpatient Admission: IOL at 40 weeks Plan Induction Method: ANASTASIYA MCMAHAN DO Jan 25, 2023 08:46
[2023-01-25] MEDS ORDERED: OXYTOCIN DRIP PRE-MIX 500 ML IV SCH (10:15)
[2023-01-25] MEDS ORDERED: fentaNYL 2 mcg/ml BUPIVA 0.125 100 ML ONE (15:08)
[2023-01-25] MEDS ORDERED: fentaNYL INJECTION 100 MCG/2 ML VIAL ONE (15:42)
[2023-01-25] MEDS ORDERED: BUPIVACAINE 0.5% 10 ML VIAL ONE (15:43)
[2023-01-25] MEDS ORDERED: NALOXONE 0.4 MG/ML 1 ML VIAL IV PRN ×2 (16:30→21:15)
[2023-01-25] MEDS ORDERED: fentaNYL 2 mcg/ml BUPIVA 0.125 100 ML EPI SCH (16:30)
[2023-01-25] MEDS ORDERED: LACTATED RINGERS 1,000 ML 1,000 ML IV ONE ×2 (16:30)
[2023-01-25] MEDS ORDERED: fentaNYL INJECTION 100 MCG/2 ML VIAL INJ ONE (16:30)
[2023-01-25] MEDS ORDERED: ONDANSETRON INJECTION 4 MG/2 ML (SDV) IV PRN (16:30)
[2023-01-25] MEDS ORDERED: PROMETHAZINE INJ 25 MG/ML VIAL ONE (20:11)
[2023-01-25] MEDS ORDERED: PROMETHAZINE INJ 25 MG/ML VIAL IVP ONE (20:15)
[2023-01-25] MEDS ORDERED: Tetanus/Diphtheria/Pertussis (Acell) ADULT Vaccine 0.5 ML IM ONE (21:15)
[2023-01-25] MEDS ORDERED: DIBUCAINE 1% OINTMENT 28 GM TUBE TOP PRN (21:15)
[2023-01-25] MEDS ORDERED: BENZOCAINE/MENTHOL (DERMOPLAST) 56 ML CAN TP PRN (21:15)
[2023-01-25] MEDS ORDERED: MEASLES, MUMPS, RUBELLA VACCINE (MMR) SQ ONE (21:15)
--- NOTE | 2023-01-25 21:15 | OB Labor & Delivery Record ---
L&D History Date of Service Date of Service: Jan 25, 2023 History Expected Date of Delivery: Jan 22, 2023 Gestational Age in Weeks: 40 Hx : 3 Hx Para: 1 Complications Events: Routine care Operative Indications (Cesarea: N/A-Vaginal Delivery Intrapartal Events: None L&D Stage1 Stage One Onset of Labor - Date: Jan 25, 2023 Monitors and Tracing Monitor Mode: External Heart Rate: 140 Monitor Accelerations: Uniform Monitor Decelerations: Variable Station: -3 Longterm Variability: Average (6-10) Short Term Variability: Present Presentation: Vertex Vital Signs VS - Last 72 Hours, by Label 01/25/23 01/25/23 01/25/23 01/25/23 07:20 10:10 10:30 10:45 Temp 36.4 36.3 Pulse 93 86 90 79 Resp 18 18 18 18 B/P (MAP) 98/63 (75) 100/67 (78) 98/63 (75) Pulse Ox 98 O2 Delivery Room Air Room Air Room Air Room Air 01/25/23 01/25/23 01/25/23 01/25/23 11:00 11:15 11:30 11:45 Temp 36.3 Pulse 78 75 78 75 Resp 16 18 16 16 B/P (MAP) 106/55 (72) 102/60 (74) 101/63 (76) 97/57 (70) O2 Delivery Room Air Room Air Room Air Room Air 01/25/23 01/25/23 01/25/23 01/25/23 12:00 12:15 12:30 12:45 Temp 36.4 Pulse 125 80 87 69 Resp 18 16 18 18 B/P (MAP) 100/64 (76) 99/64 (76) 102/65 (77) 83/52 (62) O2 Delivery Room Air Room Air Room Air Room Air 01/25/23 01/25/23 01/25/23 01/25/23 13:14 13:27 13:45 13:57 Pulse 73 78 73 75 B/P (MAP) 87/54 (65) 90/52 (65) 102/64 (77) 86/54 (65) O2 Delivery Room Air Room Air Room Air Room Air 01/25/23 01/25/23 01/25/23 01/25/23 14:12 14:27 14:43 15:13 Pulse 77 85 80 76 B/P (MAP) 92/52 (65) 92/58 (69) 93/54 (67) 101/68 (79) O2 Delivery Room Air Room Air Room Air Room Air 01/25/23 01/25/23 01/25/23 01/25/23 15:27 15:43 15:48 15:57 Pulse 78 79 78 91 Resp 18 B/P (MAP) 101/68 (79) 108/70 (83) 110/74 (86) 115/70 (85) Pulse Ox 99 O2 Delivery Room Air Room Air Room Air Room Air 01/25/23 01/25/23 01/25/23 01/25/23 15:58 16:01 16:04 16:07 Pulse 90 83 86 83 B/P (MAP) 107/63 (78) 100/60 (73) 102/64 (77) 100/63 (75) O2 Delivery Room Air Room Air Room Air Room Air 01/25/23 01/25/23 01/25/23 01/25/23 16:10 16:13 16:16 16:19 Pulse 86 88 85 84 B/P (MAP) 99/62 (74) 102/64 (77) 101/63 (76) 105/63 (77) Pulse Ox 98 98 O2 Delivery Room Air Room Air Room Air Room Air 01/25/23 01/25/23 01/25/23 01/25/23 16:22 16:25 16:28 16:31 Pulse 83 81 88 76 B/P (MAP) 102/60 (74) 98/60 (73) 107/63 (78) 104/62 (76) Pulse Ox 98 98 98 O2 Delivery Room Air Room Air Room Air Room Air 01/25/23 01/25/23 01/25/23 01/25/23 16:36 16:42 16:49 17:07 Pulse 77 80 76 85 B/P (MAP) 103/64 (77) 98/61 (73) 89/61 (70) 99/63 (75) Pulse Ox 98 98 98 98 O2 Delivery Room Air Room Air Room Air Room Air 01/25/23 01/25/23 01/25/23 01/25/23 17:20 17:37 17:50 18:05 Pulse 82 83 90 96 B/P (MAP) 97/59 (72) 107/56 (73) 99/58 (72) 110/65 (80) Pulse Ox 98 99 98 98 O2 Delivery Room Air Room Air Room Air Room Air 01/25/23 01/25/23 01/25/23 01/25/23 18:21 18:35 18:52 19:07 Pulse 96 83 92 87 B/P (MAP) 114/57 (76) 103/58 (73) 102/67 (79) 106/64 (78) Pulse Ox 98 98 98 98 O2 Delivery Room Air Room Air Room Air Room Air 01/25/23 19:20 Temp 36.6 Pulse 81 Resp 18 B/P (MAP) 106/65 (79) Pulse Ox 97 O2 Delivery Room Air Rupture of Membranes Spontaneous Ruture of Membrane: No Amniotic Membrane Rupture Time: 0803 Amniotic Membrane Fluid Desc.: Clear Vaginal Bleeding Description: Normal Show Induction/Anesthesia Epidural Cath Placement - Time: 1555 Progress/Notes Patient admitted for post dates, arom performed, pitocin augmentation started and epidural requested. She progressed to complete and + 2 station L&D Stage2 Stage Two Stage II Date: Jan 25, 2023 Monitors and Tracing Monitor Mode: External Heart Rate: 140 Monitor Decelerations: Variable Longterm Variability: Average (6-10) Short Term Variability: Present Position: Right Occiput Anterior Presentation: Vertex Cord Descript/Complications Cord Vessel Description: 3 Vessels Complications nuchal cord reduced x 1 Delivery Type Delivery Method: Spontaneous Vaginal Anterior Shoulder: Right Episiotomy/Perineal Laceration Laceraction(s)/Extensions: Yes Episiotomy Description: Perineal Extension/lac, 2nd degree Sutures Used: Vicryl Degree (describe repair) perineal laceration repaired using 3-0 vicryl suture Condition of Delivery 1 minute Comment: 8 5 minute Comment: 9 Notes Live female weight pending Condition of Infant Condition of : Living Exam: No Observed Abnormalities Resuscitation Resuscitation: N/A - Spontaneous Resp L&D Stage3 Stage Three Stage III Date: Jan 25, 2023 Pictocin Pitocin Administration mu/min: 12 Pitocin ml/hr: 12 Pitocin Administration Comment: 30 mu wide open after delivery of placenta Placenta Delivery Placenta Delivery: Spontaneous Delivery Summary Summary Estimated blood loss (mL): 300 Attending at delivery: Anastasiya Moses DO Condition of Delivery Examined: Cervix Examined, Uterus Explored Post Hemorrhage: No Condition of Mother stable Condition of (s) stable ANASTASIYA MOSES DO Jan 25, 2023 21:15
[2023-01-25] MEDS: OXYTOCIN DRIP PRE-MIX 500 ML IV SCH ×2 (21:30→21:57)
[2023-01-25] MEDS: WITCH HAZEL(TUCKS) 40 EA JAR TOP PRN (21:57)
[2023-01-25] MEDS: IBUPROFEN 600 MG TABLET PO SCH (22:00)
[2023-01-25] MEDS: ACETAMINOPHEN 500 MG TABLET PO SCH (22:01)
[2023-01-25] MEDS: CATHETER FLUSH 10 ML SYR IV SCH ×3 (22:59→23:02)
[2023-01-26 04:12] VITALS: BP 97/57
[2023-01-26] MEDS: ACETAMINOPHEN 500 MG TABLET PO SCH ×4 (04:18→21:22)
[2023-01-26] MEDS: IBUPROFEN 600 MG TABLET PO SCH ×4 (04:18→21:22)
[2023-01-26 06:02] LABS: BASOPHILS % (AUTO) 0 % (0-10); EOSINOPHILS # (AUTO) 0.1 10^3/uL (0.0-0.3); EOSINOPHILS % (AUTO) 1 % (0-10); HEMATOCRIT 35 % (35-52); HEMOGLOBIN 11.5 g/dL (11.5-16.0); LYMPHOCYTES # (AUTO) 2.2 10^3/uL (1.0-4.0); LYMPHOCYTES % (AUTO) 17 % (12-44); MEAN CORPUSCULAR HEMOGLOBIN 29 pg (25-34); MEAN CORPUSCULAR HGB CONC 33 g/dL (32-36); MEAN CORPUSCULAR VOLUME 89 fL (80-99); MEAN PLATELET VOLUME 9.9 fL (9.0-12.2); MONOCYTES # (AUTO) 1.3 10^3/uL (0.0-1.0); MONOCYTES % (AUTO) 10 % (0-12); NEUTROPHILS # (AUTO) 9.4 10^3/uL (1.8-7.8); NEUTROPHILS % (AUTO) 72 % (42-75); PLATELET COUNT 123 10^3/uL (130-400)
--- NOTE | 2023-01-26 06:33 | Postpartum Progress Note ---
Note Note Day # 1 Subjective: Patient is without complaints. Ambulating, voiding. Tolerating a regular diet without nausea or vomiting. Normal lochia. Pain is well controlled with oral pain medications. Objective: Physical Exam: General - Alert and oriented, no apparent distress Abdomen - Soft, appropriately tender to palpation, non-distended, fundus firm at umbilicus Extremities - no edema, negative Mundo's bilaterally Assessment: PPD 1 NVD Plan: Routine care. Encourage breast feeding. Encourage ambulation. Ferrous sulfate supplementation. Plan for discharge tomorrow morning Vitals - Labs Vital Signs - I&O Vital Signs Date Time Temp Pulse Resp B/P (MAP) Pulse Ox O2 Delivery O2 Flow Rate FiO2 01/26/23 04:12 36.3 78 18 97/57 (70) 98 Room Air 01/25/23 23:39 36.2 102 20 102/59 (73) 97 Room Air 01/25/23 22:19 73 95/58 (70) 01/25/23 22:04 64 98/59 (72) 01/25/23 21:49 36.7 80 101/60 (74) 01/25/23 21:35 87 111/66 (81) 01/25/23 21:19 78 97/58 (71) 01/25/23 21:05 90 102/54 (70) 01/25/23 20:56 78 110/47 (68) 01/25/23 20:49 86 95/52 (66) 01/25/23 20:36 94 20 101/61 (74) 100 Non Rebreather 15.00 01/25/23 20:20 78 83/50 (61) 99 Non Rebreather 15.00 01/25/23 20:07 79 18 129/56 (80) 99 Non Rebreather 15.00 01/25/23 19:36 92 16 111/65 (80) 98 Room Air 01/25/23 19:20 36.6 81 18 106/65 (79) 97 Room Air 01/25/23 19:07 87 106/64 (78) 98 Room Air 01/25/23 18:52 92 102/67 (79) 98 Room Air 01/25/23 18:35 83 103/58 (73) 98 Room Air 01/25/23 18:21 96 114/57 (76) 98 Room Air 01/25/23 18:05 96 110/65 (80) 98 Room Air 01/25/23 17:50 90 99/58 (72) 98 Room Air 01/25/23 17:37 83 107/56 (73) 99 Room Air 01/25/23 17:20 82 97/59 (72) 98 Room Air 01/25/23 17:07 85 99/63 (75) 98 Room Air 01/25/23 16:49 76 89/61 (70) 98 Room Air 01/25/23 16:42 80 98/61 (73) 98 Room Air 01/25/23 16:36 77 103/64 (77) 98 Room Air 01/25/23 16:31 76 104/62 (76) 98 Room Air 01/25/23 16:28 88 107/63 (78) Room Air 01/25/23 16:25 81 98/60 (73) 98 Room Air 01/25/23 16:22 83 102/60 (74) 98 Room Air 01/25/23 16:19 84 105/63 (77) Room Air 01/25/23 16:16 85 101/63 (76) 98 Room Air 01/25/23 16:13 88 102/64 (77) Room Air 01/25/23 16:10 86 99/62 (74) 98 Room Air 01/25/23 16:07 83 100/63 (75) Room Air 01/25/23 16:04 86 102/64 (77) Room Air 01/25/23 16:01 83 100/60 (73) Room Air 01/25/23 15:58 90 107/63 (78) Room Air 01/25/23 15:57 91 18 115/70 (85) 99 Room Air 01/25/23 15:48 78 110/74 (86) Room Air 01/25/23 15:43 79 108/70 (83) Room Air 01/25/23 15:27 78 101/68 (79) Room Air 01/25/23 15:13 76 101/68 (79) Room Air 01/25/23 14:43 80 93/54 (67) Room Air 01/25/23 14:27 85 92/58 (69) Room Air 01/25/23 14:12 77 92/52 (65) Room Air 01/25/23 13:57 75 86/54 (65) Room Air 01/25/23 13:45 73 102/64 (77) Room Air 01/25/23 13:27 78 90/52 (65) Room Air 01/25/23 13:14 73 87/54 (65) Room Air 01/25/23 12:45 69 18 83/52 (62) Room Air 01/25/23 12:30 87 18 102/65 (77) Room Air 01/25/23 12:15 80 16 99/64 (76) Room Air 01/25/23 12:00 36.4 125 18 100/64 (76) Room Air 01/25/23 11:45 75 16 97/57 (70) Room Air 01/25/23 11:30 78 16 101/63 (76) Room Air 01/25/23 11:15 75 18 102/60 (74) Room Air 01/25/23 11:00 36.3 78 16 106/55 (72) Room Air 01/25/23 10:45 79 18 98/63 (75) Room Air 01/25/23 10:30 90 18 100/67 (78) Room Air 01/25/23 10:10 36.3 86 18 98/63 (75) Room Air 01/25/23 07:20 36.4 93 18 98 Room Air I & O 01/26/23 07:00 Intake Total 4537.5 ml Balance 4537.5 ml Labs Laboratory Tests 01/25/23 08:28: White Blood Count 8.4, Red Blood Count 4.01, Hemoglobin 11.8, Hematocrit 35, Mean Corpuscular Volume 87, Mean Corpuscular Hemoglobin 29, Mean Corpuscular Hemoglobin Concent 34, Red Cell Distribution Width 13.1, Platelet Count 122L, Mean Platelet Volume 9.2, Immature Granulocyte % (Auto) 1, Neutrophils (%) (Auto) 66, Lymphocytes (%) (Auto) 23, Monocytes (%) (Auto) 10, Eosinophils (%) (Auto) 1, Basophils (%) (Auto) 0, Neutrophils # (Auto) 5.5, Lymphocytes # (Auto) 1.9, Monocytes # (Auto) 0.8, Eosinophils # (Auto) 0.1, Basophils # (Auto) 0.0, Immature Granulocyte # (Auto) 0.1, Syphilis Serology Non-Reactive, Syphilis Total Antibody PositiveH, Rapid Plasma Reagin Nonreactive 01/26/23 05:36: White Blood Count 13.0H, Red Blood Count 3.92, Hemoglobin 11.5, Hematocrit 35, Mean Corpuscular Volume 89, Mean Corpuscular Hemoglobin 29, Mean Corpuscular Hemoglobin Concent 33, Red Cell Distribution Width 13.2, Platelet Count 123L, Mean Platelet Volume 9.9, Immature Granulocyte % (Auto) 1, Neutrophils (%) (Auto) 72, Lymphocytes (%) (Auto) 17, Monocytes (%) (Auto) 10, Eosinophils (%) (Auto) 1, Basophils (%) (Auto) 0, Neutrophils # (Auto) 9.4H, Lymphocytes # (Auto) 2.2, Monocytes # (Auto) 1.3H, Eosinophils # (Auto) 0.1, Basophils # (Auto) 0.0, Immature Granulocyte # (Auto) 0.1 ANASTASIYA MOSES DO Jan 26, 2023 06:33
--- NOTE | 2023-01-26 06:34 | Discharge Inst-Women's Service ---
Discharge Inst-Women's Serv Depart Medication/Instructions New, Converted or Re-Newed RX: Transmitted to Pharmacy Final Diagnosis PPD 2 NVD Problems Reviewed?: Yes Consults/Follow Up Additional Follow Up: Yes Orders/Referrals Dr. Moses in 6 weeks Activity Activity: Activity as Tolerated Driving Instructions: No Driving for 1 Week NO SMOKING: NO SMOKING Nothing Inside Vagina: No Douching, No [place], No Tampons Diet Discharge Diet: No Restrictions Symptoms to Report to : Bleeding Excessive, Pain Increased, Fever Over 101 Degrees F, Vaginal Bleeding Increase, Questions/Concerns For Any Problems or Questions: Contact Your Physician ANASTASIYA MOSES DO Jan 26, 2023 06:34
[2023-01-26] MEDS ORDERED: ACET-93 PO (06:35)
[2023-01-26] MEDS ORDERED: IBUP-844 PO (06:35)
[2023-01-26] MEDS ORDERED: DOCU100C37 PO (06:35)
[2023-01-26] MEDS ORDERED: DIBU30OI TOP (06:35)
[2023-01-26] MEDS ORDERED: BENZ78AE5 TP (06:35)
[2023-01-26 08:21] VITALS: BP 93/54
[2023-01-26] MEDS: FERROUS SULFATE 325 MG (IRON) TABLET PO SCH (08:24)
[2023-01-26] MEDS: PRENATAL VITAMIN TABLET PO SCH (08:25)
[2023-01-26] MEDS: DOCUSATE SODIUM 100 MG CAPSULE PO SCH ×2 (08:25→21:22)
[2023-01-26 12:00] VITALS: BP 101/57
[2023-01-26 16:36] VITALS: BP 99/57
[2023-01-26 20:55] VITALS: BP 101/59
[2023-01-26] MEDS: WITCH HAZEL(TUCKS) 40 EA JAR TOP PRN (21:22)
[2023-01-26] MEDS: CATHETER FLUSH 10 ML SYR IV SCH (22:17)
[2023-01-27 02:11] VITALS: BP 103/61
[2023-01-27] MEDS: IBUPROFEN 600 MG TABLET PO SCH ×2 (02:39→08:40)
[2023-01-27] MEDS: ACETAMINOPHEN 500 MG TABLET PO SCH ×2 (02:39→08:40)
[2023-01-27] MEDS: CATHETER FLUSH 10 ML SYR IV SCH (05:20)
--- NOTE | 2023-01-27 07:55 | Postpartum Progress Note ---
Note Note Day # 2 Subjective: Patient is without complaints. Ambulating, voiding. Tolerating a regular diet without nausea or vomiting. Normal lochia. Pain is well controlled with oral pain medications. Objective: Physical Exam: General - Alert and oriented, no apparent distress Abdomen - Soft, appropriately tender to palpation, non-distended, fundus firm at umbilicus Extremities - no edema, negative Mundo's bilaterally Assessment: PPD 2 NVD Plan: Routine care. Encourage breast feeding. Encourage ambulation. Ferrous sulfate supplementation. Plan for discharge today Vitals - Labs Vital Signs - I&O Vital Signs Date Time Temp Pulse Resp B/P (MAP) Pulse Ox O2 Delivery O2 Flow Rate FiO2 01/27/23 02:11 36.3 78 16 103/61 (75) 97 Room Air 01/26/23 20:55 36.5 81 16 101/59 (73) 98 Room Air 01/26/23 16:36 36.7 87 18 99/57 (71) 99 Room Air 01/26/23 12:00 36.6 68 18 101/57 (72) 98 Room Air 01/26/23 08:21 36.3 69 18 93/54 (67) 98 Room Air ANASTASIYA MOSES DO Jan 27, 2023 07:55
[2023-01-27 08:35] VITALS: BP 108/74
[2023-01-27] MEDS: FERROUS SULFATE 325 MG (IRON) TABLET PO SCH (08:40)
[2023-01-27] MEDS: WITCH HAZEL(TUCKS) 40 EA JAR TOP PRN (08:40)
[2023-01-27] MEDS: DOCUSATE SODIUM 100 MG CAPSULE PO SCH (08:40)
[2023-01-27] MEDS: PRENATAL VITAMIN TABLET PO SCH (08:41)
== END 2023-01-27 10:10 | disposition home or self-care (01) | DRG 807 ==
LOC: LDRP 06:39 → WS 23:55
PROVIDERS: ADMIT Obstetrics & Gynecology; ATTEND Obstetrics & Gynecology
PROC: 10E0XZZ Delivery of Products of Conception, External Approach (ICD-10-PCS; principal; 2023-01-25)
PROC: 0KQM0ZZ Repair Perineum Muscle, Open Approach (ICD-10-PCS; 2023-01-25)
PROC: 10907ZC Drainage of Amniotic Fluid, Therapeutic from Products of Conception, Via Natural or Artificial Opening (ICD-10-PCS; 2023-01-25)
DX: O48.0 Post-term pregnancy (principal); Z37.0 Single live birth; Z3A.40 40 weeks gestation of pregnancy; O70.1 Second degree perineal laceration during delivery
CPT/HCPCS: 36415; 85025; 86592; 86780; 86850; 86900; 86901